=== PATIENT | female | born 1990 | race African-American/Black ===

== ENCOUNTER 2017-03-07 18:29 | Emergency (ER) | payer OTHER ==
[~2017-03-07] VITALS: Ht 154.9 cm; Wt 70.8 kg
[2017-03-07 19:34] LABS: HEMATOCRIT 40.5 % (36.0-46.0); MCH 30.6 PG (29.0-34.0); MCHC 33.3 G/DL (30.0-36.0); MCV 91.8 FL (83-99); MEAN PLAT.VOLUME 11.2 uM^3 (9.5-12.4); PLATELET COUNT 251 K/uL (156-360); RBC DIS.WIDTH-SD 40.8 % (39-53); RED BLOOD COUNT 4.41 M/uL (3.80-5.20); WHITE BLOOD COUNT 7.2 K/uL (4.1-10.2)
[2017-03-07 19:43] LABS: CHLORIDE 109 mEq/L (99-109); POTASSIUM 4.1 mEq/L (3.7-5.4); SODIUM 139 mEq/L (136-147)
[2017-03-07 19:45] LABS: GLUCOSE 91 mg/dL (70-99)
[2017-03-07 19:46] LABS: ANION GAP 5 MEQ/L (2-14)
[2017-03-07 19:49] LABS: GFR ESTIMATE (CALCULATED) > 59 mL/min/; UREA NITROGEN (BUN) 7 mg/dL (9-23)
[2017-03-07 19:54] LABS: TROP-I INTERPRETATION NEGATIVE; TROPONIN-I < 0.01 ng/mL (0.0-0.30)
[2017-03-07 19:57] LABS: QUANTITATIVE HCG < 4.0 MIU/ML
[2017-03-07] MEDS ORDERED: ATARAX,VISTARIL25 MG PO (20:32)
[2017-03-07 21:03] VITALS: BP 119/88
== END 2017-03-07 21:02 | disposition home or self-care (01) ==
LOC: EME 18:29
PROVIDERS: Emergency Medicine
DX: F41.9 Anxiety disorder, unspecified (principal); R00.2 Palpitations; R55 Syncope and collapse; F17.200 Nicotine dependence, unspecified, uncomplicated
CPT/HCPCS: 80048; 84484; 84702; 85027; 93005